=== PATIENT | male | born 1930 | race Caucasian/White ===

== ENCOUNTER 2019-03-09 17:36 | Inpatient (IN) ==
[2019-03-09] MEDS ORDERED: FUROSEMIDE 40 MG/4 ML VIAL IV STA (18:41)
[2019-03-09] MEDS ORDERED: ALBUTEROL/IPRATROPIUM 3 ML NEB RESP TX STA (18:41)
[2019-03-09 19:25] LABS: Basophils % 0.2 % (0.0-0.8); Eosinophils # 0.1 10*3/uL (0.0-0.87); Hematocrit 27.1 VOL% (42.0-52.0); Hemoglobin 8.4 GM/DL (14.0-18.0); Immature Granulocytes % 0.8 %; Immature Granulocytes Absolute 0.08 #; Lymphocytes # 1.1 10*3/uL (1.4-4.0); Lymphocytes % 11.3 % (21.2-54.2); Mean Corpuscular Volume 90.3 FL (87-102); Mean Platelet Volume 9.4 FL (9.6-12.0); Monocytes % 11.7 % (1.7-12.7); Platelet Count 487 T/CUMM (130-400); Red Cell Distribution Width 15.3 % (9.3-17.3); White Blood Count 9.8 T/CUMM (4-12)
[2019-03-09 19:35] LABS: INR 0.9; PT Patient Result 10.3 SECS (9.6-12.2); Partial Thromboplastin Time 28.4 SECS (20.8-36.0)
[2019-03-09 19:51] LABS: Alanine Aminotransferase 16 U/L (16-61); Albumin 2.4 G/DL (3.4-5.0); Alkaline Phosphatase 85 U/L (45-117); Aspartate Amino Transferase 12 U/L (0-37); Bilirubin,Total < 0.39 MG/DL (0.2-1.0); Blood Urea Nitrogen 21 MG/DL (7-18); Calcium 8.5 MG/DL (8.5-10.1); Estimated Glom Filtration Rate 78 ML/MIN; Glucose 86 MG/DL (74-106); Osmolality,Calculated 265.5 MOS/KG (273-304); Total Protein 6.8 G/DL (6.4-8.3)
[2019-03-09 19:56] LABS: Troponin I 0.101 NG/ML (0.00-0.045)
[2019-03-09] MEDS ORDERED: METOPROLOL TARTRATE 5 MG/5 ML VIAL IV STA (20:27)
[2019-03-09 21:10] LABS: Apearance,Urine CLEAR (Clear); Bilirubin,Urine Negative (Negative); Blood, Urine Negative (Negative); Glucose,Urine (UA) Negative (Negative); Ketones,Urine Negative (Negative); Mucus,Urine Occasional /LPF (Occasional); Nitrite,Urine Negative (Negative); Protein,Urine Negative; RBC,Urine 8 /HPF (0-4); Urine Color Yellow (Yellow); Urine Urobilinogen < 2.0 EU/DL (0.2-1.0); WBC,Urine 4 /HPF (0-6)
[2019-03-09] MEDS ORDERED: SCOPOLAMINE 1.5 MG PATCH TRANSDERM ONE (22:56)
[2019-03-09] MEDS ORDERED: GLUCAGON 1 MG VIAL IM PRN (22:57)
[2019-03-09] MEDS ORDERED: DEXTROSE 50% 25 GM/50 ML VIAL IV PRN (22:57)
[2019-03-09] MEDS ORDERED: ALBUTEROL/IPRATROPIUM 3 ML NEB RESP TX PRN (23:04)
[2019-03-10 00:33] LABS: % Iron Saturation 7.7 % (18-50); Ferritin 42.3 ng/ml (26-388)
[2019-03-10] MEDS: carvediloL 12.5 MG TABLET PO SCH ×3 (02:27→17:13)
[2019-03-10] MEDS: MONTELUKAST 10 MG TABLET PO SCH ×2 (02:27→21:56)
[2019-03-10] MEDS: BUDESONIDE/FORMOTEROL 160-4.5 INHALER 6 GM INH SCH ×3 (02:28→22:05)
[2019-03-10 05:12] LABS: Basophils % 0.3 % (0.0-0.8); Eosinophils # 0.1 10*3/uL (0.0-0.87); Eosinophils % 0.9 % (0.00-10.9); Hematocrit 28.8 VOL% (42.0-52.0); Immature Granulocytes % 0.6 %; Immature Granulocytes Absolute 0.06 #; Lymphocytes # 0.9 10*3/uL (1.4-4.0); Lymphocytes % 8.5 % (21.2-54.2); Mean Corpuscular HGB Conc 31.3 GM/DL (32-36); Mean Corpuscular Volume 89.4 FL (87-102); Mean Platelet Volume 9.6 FL (9.6-12.0); Monocytes % 13.8 % (1.7-12.7); Neutrophils % 75.9 % (38.7-73.9); Platelet Count 500 T/CUMM (130-400); Red Blood Count 3.22 MC/CUMM (3.8-5.5); Red Cell Distribution Width 15.3 % (9.3-17.3); White Blood Count 10.4 T/CUMM (4-12)
[2019-03-10 05:45] LABS: Calcium 9.3 MG/DL (8.5-10.1); Osmolality,Calculated 268.2 MOS/KG (273-304)
[2019-03-10] MEDS: INSULIN LISPRO 100 UNIT/ML SUBCUT SCH ×4 (08:35→22:08)
[2019-03-10] MEDS: THEOPHYLLINE ER 300 MG TABLET PO SCH ×2 (09:14→17:13)
[2019-03-10] MEDS: PANTOPRAZOLE 40 MG TABLET PO SCH (09:15)
[2019-03-10] MEDS: ASPIRIN 325 MG TABLET PO SCH (09:15)
[2019-03-10] MEDS: amLODIPine 10 MG TABLET PO SCH (09:15)
[2019-03-10] MEDS: ENOXAPARIN 40 MG/0.4 ML SYRINGE SUBCUT SCH (09:16)
[2019-03-10] MEDS: POLYETHYLENE GLYCOL POWDER 17 GM PACK PO PRN (09:16)
[2019-03-10] MEDS ORDERED: POLYETHYLENE GLYCOL POWDER 17 GM PACK PO ONE (09:28)
[2019-03-10] MEDS ORDERED: clonazePAM 0.5 MG TABLET PO ONE (09:53)
[2019-03-10] MEDS ORDERED: metOLazone 2.5 MG TABLET PO PRN (10:23)
[2019-03-10] MEDS: IPRATROPIUM 500 MCG/2.5 ML NEB RESP TX SCH ×2 (14:16→15:20)
[2019-03-10] MEDS: LORATADINE 10 MG TABLET PO SCH (15:17)
[2019-03-10] MEDS ORDERED: NON-FORMULARY MEDICATION (Omeprazole 20 MG) PO SCH (16:30)
[2019-03-10] MEDS ORDERED: SODIUM PHOSPHATE ENEMA 133 ML BOTTLE RECTAL ONE (16:37)
[2019-03-10] MEDS ORDERED: SODIUM PHOSPHATE ENEMA 133 ML BOTTLE RECTAL PRN (17:08)
[2019-03-10] MEDS: HYOSCYAMINE 0.125 MG TABLET PO SCH ×2 (17:13→21:57)
[2019-03-10] MEDS: MEROPENEM 500 MG in SODIUM CHLORIDE 0.9% 100 ML IV SCH ×2 (18:09→23:28)
[2019-03-10] MEDS: ALBUTEROL/IPRATROPIUM 3 ML NEB RESP TX SCH (19:11)
[2019-03-10] MEDS: BRIMONIDINE 0.2% OPH SOLN 5 ML BOTTLE LEFT EYE SCH (21:49)
[2019-03-10] MEDS: IPRATROPIUM 0.03% NASAL SPRAY 30 ML BOTTLE BOTH NARES SCH (21:51)
[2019-03-10] MEDS: OMEGA 3 ACID ETHYL ESTERS 1 GM CAPSULE PO SCH (21:56)
[2019-03-10] MEDS: ASCORBIC ACID 500 MG TABLET PO SCH (21:57)
[2019-03-10] MEDS: clonazePAM 0.5 MG TABLET PO SCH (21:57)
[2019-03-10] MEDS ORDERED: ALUMINUM/MAGNES/SIMETH MAX STR 30 ML UDCUP PO PRN (23:56)
[2019-03-11] MEDS: ACETAMINOPHEN 500 MG TABLET PO SCH ×3 (00:09→20:59)
[2019-03-11] MEDS: ALBUTEROL/IPRATROPIUM 3 ML NEB RESP TX SCH ×4 (00:14→19:23)
[2019-03-11] MEDS: MEROPENEM 500 MG in SODIUM CHLORIDE 0.9% 100 ML IV SCH ×3 (06:18→17:55)
[2019-03-11 06:48] LABS: Basophils % 0.3 % (0.0-0.8); Eosinophils # 0.1 10*3/uL (0.0-0.87); Eosinophils % 0.6 % (0.00-10.9); Hematocrit 26.3 VOL% (42.0-52.0); Hemoglobin 8.2 GM/DL (14.0-18.0); Immature Granulocytes % 0.6 %; Immature Granulocytes Absolute 0.06 #; Lymphocytes # 1.3 10*3/uL (1.4-4.0); Mean Corpuscular HGB Conc 31.2 GM/DL (32-36); Mean Corpuscular Volume 89.2 FL (87-102); Mean Platelet Volume 9.7 FL (9.6-12.0); Neutrophils % 73.5 % (38.7-73.9); Platelet Count 476 T/CUMM (130-400); Red Blood Count 2.95 MC/CUMM (3.8-5.5); Red Cell Distribution Width 15.3 % (9.3-17.3); White Blood Count 10.6 T/CUMM (4-12)
[2019-03-11 07:03] LABS: Calcium 8.8 MG/DL (8.5-10.1); Osmolality,Calculated 275.2 MOS/KG (273-304)
[2019-03-11] MEDS: POLYETHYLENE GLYCOL POWDER 17 GM PACK PO PRN (09:10)
[2019-03-11] MEDS: ASCORBIC ACID 500 MG TABLET PO SCH ×2 (09:11→20:59)
[2019-03-11] MEDS: amLODIPine 10 MG TABLET PO SCH (09:11)
[2019-03-11] MEDS: THEOPHYLLINE ER 300 MG TABLET PO SCH ×2 (09:11→17:55)
[2019-03-11] MEDS: PANTOPRAZOLE 40 MG TABLET PO SCH (09:12)
[2019-03-11] MEDS: LORATADINE 10 MG TABLET PO SCH (09:12)
[2019-03-11] MEDS: ASPIRIN 325 MG TABLET PO SCH (09:12)
[2019-03-11] MEDS: HYOSCYAMINE 0.125 MG TABLET PO SCH ×4 (09:12→20:59)
[2019-03-11] MEDS: OMEGA 3 ACID ETHYL ESTERS 1 GM CAPSULE PO SCH ×2 (09:12→21:00)
[2019-03-11] MEDS: carvediloL 12.5 MG TABLET PO SCH ×2 (09:13→17:55)
[2019-03-11] MEDS: IPRATROPIUM 0.03% NASAL SPRAY 30 ML BOTTLE BOTH NARES SCH ×2 (09:13→21:07)
[2019-03-11] MEDS: BRIMONIDINE 0.2% OPH SOLN 5 ML BOTTLE LEFT EYE SCH ×2 (09:13→21:07)
[2019-03-11] MEDS: FLUTICASONE 50 MCG NASAL SPRAY 16 GM BOTTLE BOTH NARES SCH (09:13)
[2019-03-11] MEDS: ENOXAPARIN 40 MG/0.4 ML SYRINGE SUBCUT SCH (09:14)
[2019-03-11] MEDS: BUDESONIDE/FORMOTEROL 160-4.5 INHALER 6 GM INH SCH ×2 (09:14→21:05)
[2019-03-11] MEDS: INSULIN LISPRO 100 UNIT/ML SUBCUT SCH ×4 (09:35→21:07)
[2019-03-11 09:57] LABS: % Iron Saturation 7.8 % (18-50)
[2019-03-11] MEDS ORDERED: IRON SUCROSE 200 MG in SODIUM CHLORIDE 0.9% 100 ML IV ONE (10:12)
[2019-03-11] MEDS: DORNASE ALFA 2.5 MG/2.5 ML VIAL RESP TX SCH ×2 (13:00→19:46)
[2019-03-11] MEDS ORDERED: BISACODYL 5 MG TABLET PO ONE (13:48)
[2019-03-11] MEDS ORDERED: BISACODYL 5 MG TABLET PO PRN (13:48)
[2019-03-11] MEDS: clonazePAM 0.5 MG TABLET PO SCH (20:59)
[2019-03-11] MEDS: MONTELUKAST 10 MG TABLET PO SCH (20:59)
[2019-03-11] MEDS: TAMSULOSIN 0.4 MG CAPSULE PO SCH (20:59)
[2019-03-11] MEDS: QUEtiapine 25 MG TABLET PO SCH (21:00)
[2019-03-12] MEDS: MEROPENEM 500 MG in SODIUM CHLORIDE 0.9% 100 ML IV SCH ×4 (00:46→18:12)
[2019-03-12] MEDS: ALBUTEROL/IPRATROPIUM 3 ML NEB RESP TX SCH ×4 (01:27→19:32)
[2019-03-12 06:16] LABS: Basophils % 0.6 % (0.0-0.8); Eosinophils # 0.2 10*3/uL (0.0-0.87); Eosinophils % 2.8 % (0.00-10.9); Immature Granulocytes % 0.6 %; Immature Granulocytes Absolute 0.04 #; Lymphocytes # 0.9 10*3/uL (1.4-4.0); Lymphocytes % 13.7 % (21.2-54.2); Mean Corpuscular HGB Conc 30.8 GM/DL (32-36); Mean Corpuscular Volume 89.7 FL (87-102); Mean Platelet Volume 9.7 FL (9.6-12.0); Monocytes % 14.8 % (1.7-12.7); Neutrophils % 67.5 % (38.7-73.9); Platelet Count 453 T/CUMM (130-400); Red Cell Distribution Width 15.3 % (9.3-17.3); White Blood Count 6.9 T/CUMM (4-12)
[2019-03-12 06:39] LABS: Calcium 8.8 MG/DL (8.5-10.1)
[2019-03-12] MEDS: DORNASE ALFA 2.5 MG/2.5 ML VIAL RESP TX SCH ×2 (07:09→19:30)
[2019-03-12] MEDS ORDERED: FERROUS SULFATE 325 MG TABLET PO SCH (09:00)
[2019-03-12] MEDS: OMEGA 3 ACID ETHYL ESTERS 1 GM CAPSULE PO SCH (09:37)
[2019-03-12] MEDS: SIMVASTATIN 10 MG TABLET PO SCH (09:38)
[2019-03-12] MEDS: ASPIRIN 325 MG TABLET PO SCH (09:38)
[2019-03-12] MEDS: ASCORBIC ACID 500 MG TABLET PO SCH (09:38)
[2019-03-12] MEDS: ACETAMINOPHEN 500 MG TABLET PO SCH (09:38)
[2019-03-12] MEDS: amLODIPine 10 MG TABLET PO SCH (09:39)
[2019-03-12] MEDS: THEOPHYLLINE ER 300 MG TABLET PO SCH ×2 (09:39→18:11)
[2019-03-12] MEDS: carvediloL 12.5 MG TABLET PO SCH (09:40)
[2019-03-12] MEDS: HYOSCYAMINE 0.125 MG TABLET PO SCH (09:40)
[2019-03-12] MEDS: LORATADINE 10 MG TABLET PO SCH (09:40)
[2019-03-12] MEDS: INSULIN LISPRO 100 UNIT/ML SUBCUT SCH ×3 (09:40→17:53)
[2019-03-12] MEDS: PANTOPRAZOLE 40 MG TABLET PO SCH (09:40)
[2019-03-12] MEDS: TAMSULOSIN 0.4 MG CAPSULE PO SCH (09:40)
[2019-03-12] MEDS: ENOXAPARIN 40 MG/0.4 ML SYRINGE SUBCUT SCH (09:40)
[2019-03-12] MEDS: BRIMONIDINE 0.2% OPH SOLN 5 ML BOTTLE LEFT EYE SCH (09:58)
[2019-03-12] MEDS: IPRATROPIUM 0.03% NASAL SPRAY 30 ML BOTTLE BOTH NARES SCH (09:58)
[2019-03-12] MEDS: BUDESONIDE/FORMOTEROL 160-4.5 INHALER 6 GM INH SCH (09:58)
[2019-03-12] MEDS: FLUTICASONE 50 MCG NASAL SPRAY 16 GM BOTTLE BOTH NARES SCH (10:06)
[2019-03-12] MEDS: POLYETHYLENE GLYCOL POWDER 17 GM PACK PO PRN (10:15)
[2019-03-12] MEDS ORDERED: HYOSCYAMINE 0.125 MG TABLET PO PRN (10:40)
[2019-03-12] MEDS ORDERED: SODIUM CHLORIDE 0.9% 1,000 ML IV PRN ×2 (14:42→17:58)
[2019-03-13] MEDS: BENZONATATE 100 MG CAPSULE PO PRN (00:01)
[2019-03-13] MEDS: ASCORBIC ACID 500 MG TABLET PO SCH ×3 (00:01→22:17)
[2019-03-13] MEDS: OMEGA 3 ACID ETHYL ESTERS 1 GM CAPSULE PO SCH ×3 (00:02→22:19)
[2019-03-13] MEDS: TAMSULOSIN 0.4 MG CAPSULE PO SCH ×3 (00:03→22:20)
[2019-03-13] MEDS: ACETAMINOPHEN 500 MG TABLET PO SCH ×3 (00:03→22:19)
[2019-03-13] MEDS: FERROUS SULFATE 325 MG TABLET PO SCH ×3 (00:03→22:20)
[2019-03-13] MEDS: MONTELUKAST 10 MG TABLET PO SCH ×2 (00:03→22:17)
[2019-03-13] MEDS: clonazePAM 0.5 MG TABLET PO SCH ×2 (00:04→22:17)
[2019-03-13] MEDS: INSULIN LISPRO 100 UNIT/ML SUBCUT SCH ×5 (00:08→22:21)
[2019-03-13] MEDS: QUEtiapine 25 MG TABLET PO SCH ×2 (00:08→22:18)
[2019-03-13] MEDS: IPRATROPIUM 0.03% NASAL SPRAY 30 ML BOTTLE BOTH NARES SCH ×3 (00:09→22:23)
[2019-03-13] MEDS: NEBIVOLOL 10 MG TABLET PO SCH ×2 (00:09→09:07)
[2019-03-13] MEDS: BRIMONIDINE 0.2% OPH SOLN 5 ML BOTTLE LEFT EYE SCH ×3 (00:09→22:22)
[2019-03-13] MEDS: ALBUTEROL/IPRATROPIUM 3 ML NEB RESP TX SCH ×4 (00:10→19:54)
[2019-03-13] MEDS: BUDESONIDE/FORMOTEROL 160-4.5 INHALER 6 GM INH SCH ×3 (00:12→22:22)
[2019-03-13] MEDS: MEROPENEM 500 MG in SODIUM CHLORIDE 0.9% 100 ML IV SCH ×2 (02:26→04:45)
[2019-03-13] MEDS: DORNASE ALFA 2.5 MG/2.5 ML VIAL RESP TX SCH ×2 (07:03→22:45)
[2019-03-13 08:18] LABS: Basophils % 0.3 % (0.0-0.8); Eosinophils % 0.2 % (0.00-10.9); Hematocrit 22.9 VOL% (42.0-52.0); Immature Granulocytes % 0.9 %; Immature Granulocytes Absolute 0.11 #; Lymphocytes # 1.2 10*3/uL (1.4-4.0); Lymphocytes % 9.9 % (21.2-54.2); Mean Corpuscular Volume 87.1 FL (87-102); Mean Platelet Volume 9.4 FL (9.6-12.0); Monocytes % 12.4 % (1.7-12.7); Neutrophils % 76.3 % (38.7-73.9); Platelet Count 396 T/CUMM (130-400); Red Blood Count 2.63 MC/CUMM (3.8-5.5); Red Cell Distribution Width 18.2 % (9.3-17.3); White Blood Count 11.7 T/CUMM (4-12)
[2019-03-13 08:20] LABS: Calcium 8.3 MG/DL (8.5-10.1)
[2019-03-13 08:24] LABS: Hemoglobin 7.1 GM/DL (14.0-18.0)
[2019-03-13] MEDS: ASPIRIN 325 MG TABLET PO SCH (09:08)
[2019-03-13] MEDS: PANTOPRAZOLE 40 MG TABLET PO SCH ×2 (09:08→22:19)
[2019-03-13] MEDS: THEOPHYLLINE ER 300 MG TABLET PO SCH ×2 (09:08→17:07)
[2019-03-13] MEDS: amLODIPine 10 MG TABLET PO SCH (09:08)
[2019-03-13] MEDS: LORATADINE 10 MG TABLET PO SCH (09:09)
[2019-03-13] MEDS: FLUTICASONE 50 MCG NASAL SPRAY 16 GM BOTTLE BOTH NARES SCH (09:11)
[2019-03-13] MEDS: ENOXAPARIN 40 MG/0.4 ML SYRINGE SUBCUT SCH (09:13)
[2019-03-13] MEDS ORDERED: FUROSEMIDE 40 MG/4 ML VIAL IV ONE (10:35)
[2019-03-13] MEDS ORDERED: SODIUM CHLORIDE 0.9% 1,000 ML IV PRN (10:36)
[2019-03-13] MEDS: ERTAPENEM 1,000 MG in SODIUM CHLORIDE 0.9% 100 ML IV SCH (14:18)
[2019-03-13 15:41] LABS: Hematocrit 27.9 VOL% (42.0-52.0)
[2019-03-14] MEDS: ALBUTEROL/IPRATROPIUM 3 ML NEB RESP TX SCH ×4 (01:15→19:20)
[2019-03-14 04:59] LABS: Basophils % 0.3 % (0.0-0.8); Eosinophils # 0.1 10*3/uL (0.0-0.87); Eosinophils % 0.4 % (0.00-10.9); Hematocrit 22.6 VOL% (42.0-52.0); Hemoglobin 7.1 GM/DL (14.0-18.0); Immature Granulocytes % 1.5 %; Immature Granulocytes Absolute 0.18 #; Lymphocytes % 8.2 % (21.2-54.2); Mean Corpuscular HGB Conc 31.4 GM/DL (32-36); Mean Corpuscular Volume 86.9 FL (87-102); Mean Platelet Volume 10.1 FL (9.6-12.0); Monocytes % 9.3 % (1.7-12.7); NRBC # 0.02 10*3/uL; Neutrophils % 80.3 % (38.7-73.9); Platelet Count 327 T/CUMM (130-400); Red Cell Distribution Width 17.4 % (9.3-17.3); White Blood Count 11.8 T/CUMM (4-12)
[2019-03-14 05:42] LABS: Osmolality,Calculated 302.5 MOS/KG (273-304)
[2019-03-14] MEDS: DORNASE ALFA 2.5 MG/2.5 ML VIAL RESP TX SCH ×2 (08:45→20:27)
[2019-03-14] MEDS: THEOPHYLLINE ER 300 MG TABLET PO SCH ×2 (09:20→17:11)
[2019-03-14] MEDS: INSULIN LISPRO 100 UNIT/ML SUBCUT SCH ×4 (09:20→21:16)
[2019-03-14] MEDS: BRIMONIDINE 0.2% OPH SOLN 5 ML BOTTLE LEFT EYE SCH ×2 (09:21→21:17)
[2019-03-14] MEDS: BUDESONIDE/FORMOTEROL 160-4.5 INHALER 6 GM INH SCH ×2 (09:21→21:17)
[2019-03-14] MEDS: IPRATROPIUM 0.03% NASAL SPRAY 30 ML BOTTLE BOTH NARES SCH ×2 (09:21→21:17)
[2019-03-14] MEDS: ACETAMINOPHEN 500 MG TABLET PO SCH ×2 (09:21→21:15)
[2019-03-14] MEDS: ASCORBIC ACID 500 MG TABLET PO SCH ×2 (09:21→21:16)
[2019-03-14] MEDS: FLUTICASONE 50 MCG NASAL SPRAY 16 GM BOTTLE BOTH NARES SCH (09:21)
[2019-03-14] MEDS: TAMSULOSIN 0.4 MG CAPSULE PO SCH ×2 (09:22→21:16)
[2019-03-14] MEDS: FERROUS SULFATE 325 MG TABLET PO SCH ×2 (09:22→21:16)
[2019-03-14] MEDS: PANTOPRAZOLE 40 MG TABLET PO SCH (09:22)
[2019-03-14] MEDS: NEBIVOLOL 10 MG TABLET PO SCH (09:25)
[2019-03-14] MEDS: SIMVASTATIN 10 MG TABLET PO SCH (09:25)
[2019-03-14] MEDS: OMEGA 3 ACID ETHYL ESTERS 1 GM CAPSULE PO SCH ×2 (09:25→21:16)
[2019-03-14] MEDS: clonazePAM 0.5 MG TABLET PO SCH ×2 (09:25→21:16)
[2019-03-14] MEDS: LORATADINE 10 MG TABLET PO SCH (09:26)
[2019-03-14] MEDS: amLODIPine 10 MG TABLET PO SCH (09:26)
[2019-03-14] MEDS ORDERED: SODIUM CHLORIDE 0.9% 1,000 ML IV PRN (10:49)
[2019-03-14] MEDS ORDERED: FUROSEMIDE 40 MG/4 ML VIAL IV ONE (11:11)
[2019-03-14] MEDS ORDERED: FUROSEMIDE 40 MG/4 ML VIAL IV PRN (11:12)
[2019-03-14] MEDS: ERTAPENEM 1,000 MG in SODIUM CHLORIDE 0.9% 100 ML IV SCH (13:10)
[2019-03-14] MEDS ORDERED: PANTOPRAZOLE INJ 80 MG in SODIUM CHLORIDE 0.9% 100 ML IV ONE (14:30)
[2019-03-14 15:42] LABS: PT Patient Result 11.2 SECS (9.6-12.2)
[2019-03-14] MEDS ORDERED: INSULIN GLARGINE 100 UNIT/ML SUBCUT SCH (21:00)
[2019-03-14 21:15] LABS: Hematocrit 31.3 VOL% (42.0-52.0)
[2019-03-14 21:16] LABS: Hemoglobin 9.7 GM/DL (14.0-18.0)
[2019-03-14] MEDS: MONTELUKAST 10 MG TABLET PO SCH (21:16)
[2019-03-14] MEDS: QUEtiapine 25 MG TABLET PO SCH (21:17)
[2019-03-14] MEDS: PANTOPRAZOLE INJ 200 MG in SODIUM CHLORIDE 0.9% 250 ML IV SCH (21:17)
[2019-03-15] MEDS: ALBUTEROL/IPRATROPIUM 3 ML NEB RESP TX SCH ×4 (01:24→19:06)
[2019-03-15 05:05] LABS: Basophils % 0.2 % (0.0-0.8); Eosinophils % 0.1 % (0.00-10.9); Hematocrit 30.2 VOL% (42.0-52.0); Hemoglobin 9.4 GM/DL (14.0-18.0); Immature Granulocytes % 2.2 %; Immature Granulocytes Absolute 0.37 #; Lymphocytes # 1.3 10*3/uL (1.4-4.0); Lymphocytes % 7.9 % (21.2-54.2); Mean Corpuscular HGB Conc 31.1 GM/DL (32-36); Mean Corpuscular Volume 87.8 FL (87-102); Mean Platelet Volume 10.3 FL (9.6-12.0); Monocytes % 10.4 % (1.7-12.7); NRBC # 0.12 10*3/uL; Neutrophils % 79.2 % (38.7-73.9); Platelet Count 361 T/CUMM (130-400); Red Blood Count 3.44 MC/CUMM (3.8-5.5); Red Cell Distribution Width 16.8 % (9.3-17.3); White Blood Count 16.9 T/CUMM (4-12)
[2019-03-15 05:47] LABS: Calcium 8.8 MG/DL (8.5-10.1)
[2019-03-15] MEDS: POTASSIUM CHLORIDE 20 MEQ TABLET PO PRN ×3 (06:19→12:05)
[2019-03-15] MEDS: DORNASE ALFA 2.5 MG/2.5 ML VIAL RESP TX SCH ×2 (07:37→19:06)
[2019-03-15] MEDS: INSULIN LISPRO 100 UNIT/ML SUBCUT SCH ×4 (09:03→21:19)
[2019-03-15] MEDS: THEOPHYLLINE ER 300 MG TABLET PO SCH ×2 (09:04→16:52)
[2019-03-15] MEDS: NEBIVOLOL 10 MG TABLET PO SCH (09:04)
[2019-03-15] MEDS: ASCORBIC ACID 500 MG TABLET PO SCH ×2 (09:05→21:14)
[2019-03-15] MEDS: TAMSULOSIN 0.4 MG CAPSULE PO SCH ×2 (09:05→21:15)
[2019-03-15] MEDS: LORATADINE 10 MG TABLET PO SCH (09:05)
[2019-03-15] MEDS: OMEGA 3 ACID ETHYL ESTERS 1 GM CAPSULE PO SCH ×2 (09:05→21:14)
[2019-03-15] MEDS: clonazePAM 0.5 MG TABLET PO SCH ×2 (09:05→21:14)
[2019-03-15] MEDS: FERROUS SULFATE 325 MG TABLET PO SCH ×2 (09:05→21:14)
[2019-03-15] MEDS: BRIMONIDINE 0.2% OPH SOLN 5 ML BOTTLE LEFT EYE SCH ×2 (09:06→21:22)
[2019-03-15] MEDS: ACETAMINOPHEN 500 MG TABLET PO SCH ×2 (09:06→21:15)
[2019-03-15] MEDS: SIMVASTATIN 10 MG TABLET PO SCH (09:06)
[2019-03-15] MEDS: IPRATROPIUM 0.03% NASAL SPRAY 30 ML BOTTLE BOTH NARES SCH ×2 (09:07→21:22)
[2019-03-15] MEDS: FLUTICASONE 50 MCG NASAL SPRAY 16 GM BOTTLE BOTH NARES SCH (09:07)
[2019-03-15] MEDS: BUDESONIDE/FORMOTEROL 160-4.5 INHALER 6 GM INH SCH ×2 (09:07→21:22)
[2019-03-15] MEDS: ERTAPENEM 1,000 MG in SODIUM CHLORIDE 0.9% 100 ML IV SCH (12:17)
[2019-03-15] MEDS: MONTELUKAST 10 MG TABLET PO SCH (21:14)
[2019-03-15] MEDS: QUEtiapine 25 MG TABLET PO SCH (21:14)
[2019-03-15] MEDS: INSULIN GLARGINE 100 UNIT/ML SUBCUT SCH (21:20)
[2019-03-15] MEDS: PANTOPRAZOLE INJ 200 MG in SODIUM CHLORIDE 0.9% 250 ML IV SCH (21:30)
[2019-03-16] MEDS: ALBUTEROL/IPRATROPIUM 3 ML NEB RESP TX SCH ×4 (01:55→21:20)
[2019-03-16 04:53] LABS: Basophils # 0.1 10*3/uL (0.0-0.2); Basophils % 0.4 % (0.0-0.8); Eosinophils % 0.2 % (0.00-10.9); Hematocrit 30.9 VOL% (42.0-52.0); Hemoglobin 9.3 GM/DL (14.0-18.0); Immature Granulocytes % 1.6 %; Immature Granulocytes Absolute 0.24 #; Lymphocytes # 1.2 10*3/uL (1.4-4.0); Lymphocytes % 7.7 % (21.2-54.2); Mean Corpuscular HGB Conc 30.1 GM/DL (32-36); Mean Corpuscular Volume 92.2 FL (87-102); Mean Platelet Volume 10.3 FL (9.6-12.0); Monocytes % 9.4 % (1.7-12.7); NRBC # 0.07 10*3/uL; Neutrophils % 80.7 % (38.7-73.9); Platelet Count 369 T/CUMM (130-400); Red Blood Count 3.35 MC/CUMM (3.8-5.5); Red Cell Distribution Width 19.1 % (9.3-17.3); White Blood Count 15.4 T/CUMM (4-12)
[2019-03-16 05:10] LABS: Calcium 8.8 MG/DL (8.5-10.1); Osmolality,Calculated 316.3 MOS/KG (273-304)
[2019-03-16] MEDS: DORNASE ALFA 2.5 MG/2.5 ML VIAL RESP TX SCH (07:45)
[2019-03-16] MEDS: NEBIVOLOL 10 MG TABLET PO SCH (09:03)
[2019-03-16] MEDS: LORATADINE 10 MG TABLET PO SCH (09:03)
[2019-03-16] MEDS: ACETAMINOPHEN 500 MG TABLET PO SCH ×2 (09:03→21:34)
[2019-03-16] MEDS: clonazePAM 0.5 MG TABLET PO SCH ×2 (09:03→21:32)
[2019-03-16] MEDS: OMEGA 3 ACID ETHYL ESTERS 1 GM CAPSULE PO SCH ×2 (09:03→21:39)
[2019-03-16] MEDS: ASCORBIC ACID 500 MG TABLET PO SCH ×2 (09:03→21:33)
[2019-03-16] MEDS: THEOPHYLLINE ER 300 MG TABLET PO SCH ×2 (09:03→16:31)
[2019-03-16] MEDS: TAMSULOSIN 0.4 MG CAPSULE PO SCH ×2 (09:04→21:33)
[2019-03-16] MEDS: FERROUS SULFATE 325 MG TABLET PO SCH ×2 (09:04→21:34)
[2019-03-16] MEDS: INSULIN LISPRO 100 UNIT/ML SUBCUT SCH ×4 (09:04→21:36)
[2019-03-16] MEDS: FLUTICASONE 50 MCG NASAL SPRAY 16 GM BOTTLE BOTH NARES SCH (09:05)
[2019-03-16] MEDS: BRIMONIDINE 0.2% OPH SOLN 5 ML BOTTLE LEFT EYE SCH ×2 (09:05→21:35)
[2019-03-16] MEDS: BUDESONIDE/FORMOTEROL 160-4.5 INHALER 6 GM INH SCH ×2 (09:06→21:34)
[2019-03-16] MEDS: ERTAPENEM 1,000 MG in SODIUM CHLORIDE 0.9% 100 ML IV SCH (12:12)
[2019-03-16] MEDS: PANTOPRAZOLE INJ 200 MG in SODIUM CHLORIDE 0.9% 250 ML IV SCH ×2 (17:01→22:42)
[2019-03-16] MEDS: IPRATROPIUM 0.03% NASAL SPRAY 30 ML BOTTLE BOTH NARES SCH ×2 (17:01→21:35)
[2019-03-16] MEDS: INSULIN GLARGINE 100 UNIT/ML SUBCUT SCH (21:37)
[2019-03-16] MEDS: MONTELUKAST 10 MG TABLET PO SCH (21:56)
[2019-03-16] MEDS: QUEtiapine 25 MG TABLET PO SCH (21:56)
[2019-03-17] MEDS: ALBUTEROL/IPRATROPIUM 3 ML NEB RESP TX SCH ×4 (00:28→18:55)
[2019-03-17 04:53] LABS: Basophils % 0.2 % (0.0-0.8); Eosinophils # 0.1 10*3/uL (0.0-0.87); Eosinophils % 0.8 % (0.00-10.9); Hematocrit 31.9 VOL% (42.0-52.0); Hemoglobin 9.4 GM/DL (14.0-18.0); Immature Granulocytes % 1.7 %; Immature Granulocytes Absolute 0.23 #; Lymphocytes # 1.1 10*3/uL (1.4-4.0); Lymphocytes % 7.8 % (21.2-54.2); Mean Corpuscular HGB Conc 29.5 GM/DL (32-36); Mean Corpuscular Volume 94.9 FL (87-102); Mean Platelet Volume 10.5 FL (9.6-12.0); NRBC # 0.04 10*3/uL; Neutrophils % 79.5 % (38.7-73.9); Platelet Count 399 T/CUMM (130-400); Red Blood Count 3.36 MC/CUMM (3.8-5.5); Red Cell Distribution Width 19.9 % (9.3-17.3); White Blood Count 13.5 T/CUMM (4-12)
[2019-03-17 05:15] LABS: Calcium 8.9 MG/DL (8.5-10.1); Osmolality,Calculated 314.7 MOS/KG (273-304)
[2019-03-17] MEDS: THEOPHYLLINE ER 300 MG TABLET PO SCH ×2 (08:19→17:06)
[2019-03-17] MEDS: NEBIVOLOL 10 MG TABLET PO SCH (08:19)
[2019-03-17] MEDS: INSULIN LISPRO 100 UNIT/ML SUBCUT SCH ×4 (08:19→21:42)
[2019-03-17] MEDS: FERROUS SULFATE 325 MG TABLET PO SCH ×2 (08:20→21:41)
[2019-03-17] MEDS: SIMVASTATIN 10 MG TABLET PO SCH (08:20)
[2019-03-17] MEDS: ASCORBIC ACID 500 MG TABLET PO SCH ×2 (08:20→21:41)
[2019-03-17] MEDS: TAMSULOSIN 0.4 MG CAPSULE PO SCH ×2 (08:20→21:40)
[2019-03-17] MEDS: LORATADINE 10 MG TABLET PO SCH (08:20)
[2019-03-17] MEDS: clonazePAM 0.5 MG TABLET PO SCH ×2 (08:20→21:40)
[2019-03-17] MEDS: ACETAMINOPHEN 500 MG TABLET PO SCH ×2 (08:20→21:44)
[2019-03-17] MEDS: OMEGA 3 ACID ETHYL ESTERS 1 GM CAPSULE PO SCH ×2 (08:20→21:44)
[2019-03-17] MEDS: BUDESONIDE/FORMOTEROL 160-4.5 INHALER 6 GM INH SCH ×2 (08:41→21:44)
[2019-03-17] MEDS: FLUTICASONE 50 MCG NASAL SPRAY 16 GM BOTTLE BOTH NARES SCH (08:41)
[2019-03-17] MEDS: BRIMONIDINE 0.2% OPH SOLN 5 ML BOTTLE LEFT EYE SCH ×2 (08:41→21:42)
[2019-03-17] MEDS: IPRATROPIUM 0.03% NASAL SPRAY 30 ML BOTTLE BOTH NARES SCH ×2 (08:41→21:41)
[2019-03-17] MEDS: DEXTROSE 5% 1,000 ML IV SCH (11:01)
[2019-03-17] MEDS: ERTAPENEM 1,000 MG in SODIUM CHLORIDE 0.9% 100 ML IV SCH (11:41)
[2019-03-17] MEDS: DEXTROSE 5% IV SCH (14:53)
[2019-03-17] MEDS: amLODIPine 2.5 MG TABLET PO SCH (14:53)
[2019-03-17] MEDS: PANTOPRAZOLE IV SCH (14:53)
[2019-03-17] MEDS: ZINC OXIDE PASTE 113 GM TUBE TOP SCH ×2 (14:53→21:42)
[2019-03-17] MEDS: BENZONATATE 100 MG CAPSULE PO PRN ×2 (16:02→21:57)
[2019-03-17] MEDS: QUEtiapine 25 MG TABLET PO SCH (21:40)
[2019-03-17] MEDS: MONTELUKAST 10 MG TABLET PO SCH (21:40)
[2019-03-17] MEDS: INSULIN GLARGINE 100 UNIT/ML SUBCUT SCH (21:43)
[2019-03-18] MEDS: ALBUTEROL/IPRATROPIUM 3 ML NEB RESP TX SCH ×4 (00:37→19:40)
[2019-03-18] MEDS: DEXTROSE 5% 1,000 ML IV SCH ×2 (02:01→16:47)
[2019-03-18 05:35] LABS: Basophils # 0.1 10*3/uL (0.0-0.2); Basophils % 0.4 % (0.0-0.8); Eosinophils # 0.2 10*3/uL (0.0-0.87); Eosinophils % 1.2 % (0.00-10.9); Hemoglobin 9.5 GM/DL (14.0-18.0); Immature Granulocytes % 1.1 %; Immature Granulocytes Absolute 0.13 #; Lymphocytes # 0.8 10*3/uL (1.4-4.0); Lymphocytes % 6.8 % (21.2-54.2); Mean Corpuscular HGB Conc 29.7 GM/DL (32-36); Mean Corpuscular Volume 94.1 FL (87-102); Mean Platelet Volume 10.6 FL (9.6-12.0); Monocytes % 11.2 % (1.7-12.7); NRBC # 0.04 10*3/uL; Neutrophils % 79.3 % (38.7-73.9); Platelet Count 414 T/CUMM (130-400); Red Cell Distribution Width 20.2 % (9.3-17.3); White Blood Count 12.1 T/CUMM (4-12)
[2019-03-18 05:50] LABS: Calcium 8.7 MG/DL (8.5-10.1); Osmolality,Calculated 303.3 MOS/KG (273-304)
[2019-03-18] MEDS: ZINC OXIDE PASTE 113 GM TUBE TOP SCH ×2 (08:29→21:09)
[2019-03-18] MEDS: INSULIN LISPRO 100 UNIT/ML SUBCUT SCH ×4 (08:31→21:11)
[2019-03-18] MEDS ORDERED: ETOMIDATE 20 MG/10 ML VIAL IV ONE (09:00)
[2019-03-18] MEDS ORDERED: LIDOCAINE 2% 5 ML VIAL ONE (09:00)
[2019-03-18] MEDS: ERTAPENEM 1,000 MG in SODIUM CHLORIDE 0.9% 100 ML IV SCH (12:30)
[2019-03-18] MEDS: LACTATED RINGERS 1,000 ML IV SCH (13:35)
[2019-03-18] MEDS: FLUTICASONE 50 MCG NASAL SPRAY 16 GM BOTTLE BOTH NARES SCH (15:21)
[2019-03-18] MEDS: OMEGA 3 ACID ETHYL ESTERS 1 GM CAPSULE PO SCH ×2 (15:21→21:10)
[2019-03-18] MEDS: LORATADINE 10 MG TABLET PO SCH (15:22)
[2019-03-18] MEDS: IPRATROPIUM 0.03% NASAL SPRAY 30 ML BOTTLE BOTH NARES SCH ×2 (15:22→21:08)
[2019-03-18] MEDS: BRIMONIDINE 0.2% OPH SOLN 5 ML BOTTLE LEFT EYE SCH ×2 (15:22→21:08)
[2019-03-18] MEDS: THEOPHYLLINE ER 300 MG TABLET PO SCH ×2 (15:22→16:54)
[2019-03-18] MEDS: NEBIVOLOL 10 MG TABLET PO SCH (15:22)
[2019-03-18] MEDS: amLODIPine 2.5 MG TABLET PO SCH (15:23)
[2019-03-18] MEDS: TAMSULOSIN 0.4 MG CAPSULE PO SCH ×2 (15:23→21:07)
[2019-03-18] MEDS: BUDESONIDE/FORMOTEROL 160-4.5 INHALER 6 GM INH SCH ×2 (15:23→21:09)
[2019-03-18] MEDS: FERROUS SULFATE 325 MG TABLET PO SCH ×2 (15:23→21:06)
[2019-03-18] MEDS: ACETAMINOPHEN 500 MG TABLET PO SCH ×2 (15:24→21:07)
[2019-03-18] MEDS: ASCORBIC ACID 500 MG TABLET PO SCH ×2 (15:24→21:07)
[2019-03-18] MEDS: clonazePAM 0.5 MG TABLET PO SCH ×2 (15:42→21:07)
[2019-03-18] MEDS: PANTOPRAZOLE IV SCH (16:30)
[2019-03-18] MEDS: DEXTROSE 5% IV SCH (16:30)
[2019-03-18] MEDS: POTASSIUM CHLORIDE INJ 10 MEQ in DEXTROSE 5% 1,000 ML IV SCH (16:45)
[2019-03-18] MEDS: INSULIN GLARGINE 100 UNIT/ML SUBCUT SCH (21:12)
[2019-03-18] MEDS: MONTELUKAST 10 MG TABLET PO SCH (21:38)
[2019-03-18] MEDS: QUEtiapine 25 MG TABLET PO SCH (23:48)
[2019-03-19] MEDS: ALBUTEROL/IPRATROPIUM 3 ML NEB RESP TX SCH ×2 (02:09→07:12)
[2019-03-19 04:55] LABS: Basophils % 0.2 % (0.0-0.8); Eosinophils # 0.2 10*3/uL (0.0-0.87); Eosinophils % 1.1 % (0.00-10.9); Hematocrit 32.2 VOL% (42.0-52.0); Hemoglobin 9.4 GM/DL (14.0-18.0); Immature Granulocytes % 0.7 %; Lymphocytes # 0.9 10*3/uL (1.4-4.0); Lymphocytes % 6.6 % (21.2-54.2); Mean Corpuscular HGB Conc 29.2 GM/DL (32-36); Mean Corpuscular Volume 95.5 FL (87-102); Mean Platelet Volume 10.8 FL (9.6-12.0); Monocytes % 9.5 % (1.7-12.7); NRBC # 0.02 10*3/uL; Neutrophils % 81.9 % (38.7-73.9); Platelet Count 417 T/CUMM (130-400); Red Blood Count 3.37 MC/CUMM (3.8-5.5); Red Cell Distribution Width 19.9 % (9.3-17.3); White Blood Count 13.9 T/CUMM (4-12)
[2019-03-19 05:23] LABS: Calcium 8.5 MG/DL (8.5-10.1)
[2019-03-19] MEDS: BENZONATATE 100 MG CAPSULE PO PRN (06:13)
[2019-03-19] MEDS ORDERED: NYSTATIN 500,000 UNIT/5 ML UDCUP SWISH/SWAL SCH (09:00)
[2019-03-19] MEDS: INSULIN LISPRO 100 UNIT/ML SUBCUT SCH ×2 (10:50→11:44)
[2019-03-19] MEDS: ZINC OXIDE PASTE 113 GM TUBE TOP SCH (10:50)
[2019-03-19] MEDS: THEOPHYLLINE ER 300 MG TABLET PO SCH (11:01)
[2019-03-19] MEDS: NEBIVOLOL 10 MG TABLET PO SCH ×2 (11:02→12:41)
[2019-03-19] MEDS: LORATADINE 10 MG TABLET PO SCH (11:02)
[2019-03-19] MEDS: FERROUS SULFATE 325 MG TABLET PO SCH ×2 (11:03→12:41)
[2019-03-19] MEDS: LACTATED RINGERS 1,000 ML IV SCH (11:17)
[2019-03-19] MEDS: DEXTROSE 5% 1,000 ML IV SCH (11:17)
[2019-03-19] MEDS: clonazePAM 0.5 MG TABLET PO SCH ×2 (11:18→12:41)
[2019-03-19] MEDS: amLODIPine 2.5 MG TABLET PO SCH ×2 (11:18→12:41)
[2019-03-19] MEDS: OMEGA 3 ACID ETHYL ESTERS 1 GM CAPSULE PO SCH ×2 (11:18→12:41)
[2019-03-19] MEDS: ACETAMINOPHEN 500 MG TABLET PO SCH (11:18)
[2019-03-19] MEDS: TAMSULOSIN 0.4 MG CAPSULE PO SCH ×2 (11:18→12:41)
[2019-03-19] MEDS: SIMVASTATIN 10 MG TABLET PO SCH (11:19)
[2019-03-19] MEDS: ASCORBIC ACID 500 MG TABLET PO SCH (11:19)
[2019-03-19] MEDS: ERTAPENEM 1,000 MG in SODIUM CHLORIDE 0.9% 100 ML IV SCH (12:00)
[2019-03-19 12:31] VITALS: BP 131/76
[2019-03-19] MEDS: BRIMONIDINE 0.2% OPH SOLN 5 ML BOTTLE LEFT EYE SCH (12:40)
[2019-03-19] MEDS: BUDESONIDE/FORMOTEROL 160-4.5 INHALER 6 GM INH SCH (12:41)
[2019-03-19] MEDS: FLUTICASONE 50 MCG NASAL SPRAY 16 GM BOTTLE BOTH NARES SCH (12:41)
[2019-03-19] MEDS: IPRATROPIUM 0.03% NASAL SPRAY 30 ML BOTTLE BOTH NARES SCH (12:41)
[2019-03-19] MEDS: POTASSIUM CHLORIDE INJ 10 MEQ in DEXTROSE 5% 1,000 ML IV SCH (12:41)
== END 2019-03-19 13:40 | DRG 193 ==
LOC: N.ED 17:36 → SUATTDRO 22:49 → N.EDINP 22:49 → N.TELES 23:38
PROVIDERS: ADMIT Internal Medicine; ATTEND Internal Medicine